=== PATIENT | female | born 1965 | race Caucasian/White ===

== ENCOUNTER → 2017-08-08 | Outpatient (CLI) | payer BC ==
[~2017-08-08] MED LIST: ALLEGRA ALLERG180 MG PO; LOSARTAN-HCTZ1 EACH PO; PROGESTERONE200 MG PO; PROTONIX PO; ZOMIG5 MG
--- NOTE | ~2017-08-08 | CR63 ---
[facility] A Service of [facility] RADIOLOGY TEXT RESULTS PATIENT: CLAUDIA IVY LOCATION: [facility] : 65 UNIT #: [id number] AGE: [address]: Michelle Corea SEX: F ORDER DR: [id number] [address] [address] [id number] O MR#: [id number] Acc #: [id number] NAME: CLAUDIA IVY. : 1965 SEX: F STUDY DATE/TIME: 08/08/2017 12:54 UNIT: [facility] ROOM: STUDY DESCRIPTION: CR Chest 2 View Attending Physician: Michelle Corea A.P.R.N. Referring Physician: Michelle Corea A.P.R.N. Ordering Physician: Michelle Corea A.P.R.N. Primary Care Physician: Michelle Corea A.P.R.N. MEDICAL IMAGING REPORT This report is preliminary unless electronic signature is present. EXAM Chest 08/08/2017, [facility]. HISTORY 52-year-old woman cough, fever, pain all over since Friday night. Patient indicates congestion, short of breath with history of high blood pressure. COMPARISON Chest none. FINDINGS PA and lateral chest views show normal cardiac size and configuration. Mediastinal contours are preserved. There is a dense pneumonia present in the left lower lobe. Right lung is clear. IMPRESSION Dense lobar pneumonia left lower lobe. Recommend followup after appropriate medical management. Dictated by... Max Garcia M.D. THIS IS AN ELECTRONICALLY VERIFIED REPORT Max Garcia M.D. at 08/08/2017 3:32 PM SCOTT/dyana TD: 08/08/2017 13:57 JOB #: [id number] MEDICAL IMAGING REPORT Page 1 of 1
== END | disposition home or self-care (01) ==
LOC: SRAD 12:34
DX: R50.9 Fever, unspecified (principal); R05 Cough; J18.1 Lobar pneumonia, unspecified organism
CPT/HCPCS: 71020